=== PATIENT | female | born 1970 | race Caucasian/White ===

== ENCOUNTER 2017-03-06 08:37 | Emergency (ER) | payer OTHER ==
[~2017-03-06] VITALS: Ht 172.7 cm; Wt 87.3 kg
[~2017-03-06 08:37] MED LIST: CARAFATE100 MG/ML PO; CELEXA20 MG PO; FIORICET 50-301 EACH PO; IBUPROFEN600 MG PO; IMIPRAMINE HCL25 MG PO; KEFLEX500 MG PO; LEVOTHYROXINE150 MCG PO; LEVOTHYROXINE200 MC1; LISINOPRIL10 MG PO; OXYBUTYNIN CHLO15 MG PO; OXYCODONE HCL30 MG PO; PANTOPRAZOLE SO40 MG PO; PROZAC20 MG PO; RABEPRAZOLE SOD20 MG PO; XANAX0.5 MG PO
[2017-03-06 11:19] LABS: ADD MIUA? YES; BILIRUBIN NEGATIVE; BLOOD NEGATIVE; COLOR YELLOW ((YELLOW)); GLUCOSE (STRIP) NEGATIVE; KETONES NEGATIVE; LEUKOCYTES NEGATIVE; NITRITE NEGATIVE; PROTEIN (STRIP) NEGATIVE; SPECIFIC GRAVITY 1.013 (1.000-1.030); UROBILINOGEN 0.2 MG/DL (0.2-1.0)
[2017-03-06 11:26] LABS: BACTERIA NONE SEEN /HPF; EPITHELIAL CELLS 1+ /HPF; MUCUS TRACE /LPF; RED BLOOD CELLS 0-5 /HPF (0-5); WHITE BLOOD CELLS 0-5 /HPF (0-5)
[2017-03-06] MEDS ORDERED: FLEXERIL10 MG PO (11:32)
[2017-03-06] MEDS ORDERED: NAPROSYN500 MG PO (11:32)
[2017-03-06 11:53] VITALS: BP 141/90
== END 2017-03-06 11:53 | disposition home or self-care (01) ==
LOC: EME 08:37
PROVIDERS: Nurse Practitioner Family
DX: M54.9 Dorsalgia, unspecified (principal); M62.830 Muscle spasm of back; Z87.442 Personal history of urinary calculi; E03.9 Hypothyroidism, unspecified; Z85.820 Personal history of malignant melanoma of skin; Z98.84 Bariatric surgery status
CPT/HCPCS: 81003; 84702; 99281; 99284

== ENCOUNTER 2017-04-19 10:49 | Emergency (ER) | payer OTHER ==
[~2017-04-19] VITALS: Ht 172.7 cm; Wt 93.2 kg
[~2017-04-19 10:49] MED LIST changes: +FLEXERIL10 MG PO; +NAPROSYN500 MG PO
[2017-04-19 11:19] LABS: ADD MIUA? YES; BILIRUBIN NEGATIVE; BLOOD NEGATIVE; COLOR YELLOW ((YELLOW)); GLUCOSE (STRIP) 150; KETONES NEGATIVE; LEUKOCYTES NEGATIVE; NITRITE NEGATIVE; PROTEIN (STRIP) NEGATIVE; SPECIFIC GRAVITY 1.015 (1.000-1.030); UROBILINOGEN 0.2 MG/DL (0.2-1.0)
[2017-04-19 11:19] LABS: MCH 30.1 PG (29.0-34.0); MCV 91.4 FL (83-99); MEAN PLAT.VOLUME 9.9 uM^3 (9.5-12.4); PLATELET COUNT 255 K/uL (156-360); RBC DIS.WIDTH-CV 12.9 % (11.8-14.6); RBC DIS.WIDTH-SD 42.7 % (39-53); RED BLOOD COUNT 4.05 M/uL (3.80-5.20); WHITE BLOOD COUNT 5.4 K/uL (4.1-10.2)
[2017-04-19 11:25] LABS: BACTERIA RARE /HPF; CALCIUM OXALATE CRYSTALS 1+ /HPF; EPITHELIAL CELLS 1+ /HPF; MUCUS TRACE /LPF; RED BLOOD CELLS 0-5 /HPF (0-5); UCUL ADDED? NO; WHITE BLOOD CELLS 0-5 /HPF (0-5)
[2017-04-19 11:27] LABS: CHLORIDE 107 mEq/L (99-109); POTASSIUM 3.5 mEq/L (3.7-5.4); SODIUM 136 mEq/L (136-147)
[2017-04-19 11:30] LABS: GLUCOSE 218 mg/dL (70-99)
[2017-04-19 11:31] LABS: ANION GAP 8 MEQ/L (2-14)
[2017-04-19 11:32] LABS: TOTAL BILIRUBIN 0.2 mg/dL (0.0-1.0)
[2017-04-19 11:33] LABS: ALKALINE PHOSPHATASE 70 IU/L (3-129); GFR ESTIMATE (CALCULATED) > 59 mL/min/
[2017-04-19 11:34] LABS: UREA NITROGEN (BUN) 14 mg/dL (9-23)
[2017-04-19 11:37] LABS: LIPASE 13 U/L (1.0-51.0)
[2017-04-19 11:42] LABS: QUANTITATIVE HCG < 4.0 MIU/ML
[2017-04-19] MEDS ORDERED: COLACE100 MG PO (12:30)
[2017-04-19 12:44] VITALS: BP 133/81
== END 2017-04-19 12:44 | disposition home or self-care (01) ==
LOC: EME 10:49
DX: K59.00 Constipation, unspecified (principal); R73.9 Hyperglycemia, unspecified; Z98.84 Bariatric surgery status; E78.5 Hyperlipidemia, unspecified; I10 Essential (primary) hypertension; K21.9 Gastro-esophageal reflux disease without esophagitis
CPT/HCPCS: 74177; 80053; 81003; 83690; 84702; 85027; 99281; 99284; J2405; J3010; J7030

== ENCOUNTER 2017-04-27 17:10 | Emergency (ER) | payer OTHER ==
[~2017-04-27] VITALS: Ht 172.7 cm; Wt 95.9 kg
[~2017-04-27 17:10] MED LIST changes: +COLACE100 MG PO
[2017-04-27] MEDS ORDERED: SKELAXIN800 MG PO (18:39)
[2017-04-27 19:01] VITALS: BP 138/94
== END 2017-04-27 19:02 | disposition home or self-care (01) ==
LOC: EME 17:10
DX: G44.209 Tension-type headache, unspecified, not intractable (principal); M62.838 Other muscle spasm; I10 Essential (primary) hypertension; E78.5 Hyperlipidemia, unspecified; E89.0 Postprocedural hypothyroidism; Z85.828 Personal history of other malignant neoplasm of skin; Z98.84 Bariatric surgery status; Z90.710 Acquired absence of both cervix and uterus; Z90.49 Acquired absence of other specified parts of digestive tract
CPT/HCPCS: 99281; 99283

== ENCOUNTER 2017-10-25 18:10 | Emergency (ER) | payer OTHER ==
[~2017-10-25] VITALS: Ht 172.7 cm; Wt 98.5 kg
[~2017-10-25 18:10] MED LIST changes: +SKELAXIN800 MG PO
[2017-10-25 19:07] LABS: HEMOGLOBIN 12.6 G/DL (11.9-15.5); MCH 31.3 PG (29.0-34.0); MCHC 34.1 G/DL (30.0-36.0); PLATELET COUNT 341 K/uL (156-360); RBC DIS.WIDTH-CV 12.5 % (11.8-14.6); RBC DIS.WIDTH-SD 42.2 % (39-53); RED BLOOD COUNT 4.02 M/uL (3.80-5.20)
[2017-10-25 19:18] LABS: CHLORIDE 103 mEq/L (99-109)
[2017-10-25 19:19] LABS: POTASSIUM 4.4 mEq/L (3.7-5.4); SODIUM 137 mEq/L (136-147)
[2017-10-25 19:20] LABS: GLUCOSE 93 mg/dL (70-99)
[2017-10-25 19:24] LABS: CREATININE 0.7 mg/dL (0.6-1.3); GFR ESTIMATE (CALCULATED) > 59 mL/min/
[2017-10-25 19:25] LABS: UREA NITROGEN (BUN) 10 mg/dL (9-23)
[2017-10-25 19:32] LABS: TROP-I INTERPRETATION NEGATIVE; TROPONIN-I < 0.01 ng/mL (0.0-0.30)
[2017-10-25 21:48] LABS: TROP-I INTERPRETATION NEGATIVE; TROPONIN-I < 0.01 ng/mL (0.0-0.30)
[2017-10-25 22:30] VITALS: BP 139/82
== END 2017-10-25 22:32 | disposition home or self-care (01) ==
LOC: EME 18:10
PROVIDERS: Emergency Medicine
DX: M54.12 Radiculopathy, cervical region (principal); M47.892 Other spondylosis, cervical region; I10 Essential (primary) hypertension; E78.5 Hyperlipidemia, unspecified; G89.29 Other chronic pain; G56.02 Carpal tunnel syndrome, left upper limb; E89.0 Postprocedural hypothyroidism; Z79.891 Long term (current) use of opiate analgesic; Z98.84 Bariatric surgery status; Z85.828 Personal history of other malignant neoplasm of skin; Z90.710 Acquired absence of both cervix and uterus; Z90.49 Acquired absence of other specified parts of digestive tract
CPT/HCPCS: 71046; 80048; 84484; 85027; 93005; 99281; 99284

== ENCOUNTER 2018-01-31 08:00 | Emergency (ER) | payer OTHER ==
[~2018-01-31] VITALS: Ht 172.7 cm; Wt 91.8 kg
[2018-01-31] MEDS ORDERED: NAPROXEN500 MG PO (08:42)
[2018-01-31] MEDS ORDERED: LIDODERM 5% P1 PATCH TD (08:43)
[2018-01-31 08:51] VITALS: BP 117/74
== END 2018-01-31 08:52 | disposition home or self-care (01) ==
LOC: EME 08:00
DX: S43.401A Unspecified sprain of right shoulder joint, initial encounter (principal); I10 Essential (primary) hypertension; E78.5 Hyperlipidemia, unspecified; Z85.828 Personal history of other malignant neoplasm of skin; Z98.84 Bariatric surgery status
CPT/HCPCS: 99281; 99284

== ENCOUNTER → 2018-03-06 | Outpatient (CLI) | payer OTHER ==
[~2018-03-06] MED LIST changes: +LIDODERM 5% P1 PATCH TD; +NAPROXEN500 MG PO
== END | disposition home or self-care (01) ==
DX: Z01.818 Encounter for other preprocedural examination (principal); M16.12 Unilateral primary osteoarthritis, left hip; R26.2 Difficulty in walking, not elsewhere classified; M25.552 Pain in left hip; M25.652 Stiffness of left hip, not elsewhere classified; M62.81 Muscle weakness (generalized); Z74.1 Need for assistance with personal care
CPT/HCPCS: 97161 GP; 97165 GO; 97530 GP; 97535 GO